=== PATIENT | male | born 1990 | race Two or more races ===

== ENCOUNTER 2019-05-19 21:13 | Emergency (ER) | payer OTHER ==
[~2019-05-19] VITALS: Ht 190.5 cm; Wt 83.5 kg
[2019-05-20] MEDS ORDERED: NORFLEX100MG PO (00:18)
[2019-05-20] MEDS ORDERED: KETO10TA2 PO (00:18)
== END 2019-05-20 00:24 ==
LOC: ER 21:13
DX: M53.3 Sacrococcygeal disorders, not elsewhere classified (principal)

== ENCOUNTER 2020-01-06 20:28 | Emergency (ER) | payer OTHER ==
[~2020-01-06] VITALS: Ht 190.5 cm; Wt 83.5 kg
[~2020-01-06 20:28] MED LIST: KETO10TA2 PO; NORFLEX100MG PO
== END 2020-01-06 23:37 | disposition home or self-care (01) ==
LOC: ER 20:28
DX: J06.9 Acute upper respiratory infection, unspecified (principal); R06.02 Shortness of breath; F41.8 Other specified anxiety disorders

== ENCOUNTER 2020-01-17 00:12 | Emergency (ER) | payer OTHER ==
[~2020-01-17] VITALS: Ht 190.5 cm; Wt 82.1 kg
== END 2020-01-17 01:50 | disposition home or self-care (01) ==
LOC: ER 00:12
DX: M94.0 Chondrocostal junction syndrome [Tietze] (principal); K29.70 Gastritis, unspecified, without bleeding

== ENCOUNTER 2021-02-02 12:09 | Emergency (ER) | payer OTHER ==
[~2021-02-02] VITALS: Ht 190.5 cm; Wt 65.8 kg
[2021-02-02] MEDS ORDERED: KETO10TA2 PO (16:04)
== END 2021-02-02 16:08 | disposition home or self-care (01) ==
LOC: ER 12:09
DX: S93.691A Other sprain of right foot, initial encounter (principal); X50.0XXA Overexertion from strenuous movement or load, initial encounter; Y93.89 Activity, other specified; Y92.488 Other paved roadways as the place of occurrence of the external cause; Y99.8 Other external cause status

== ENCOUNTER 2021-08-08 08:24 | Emergency (ER) | payer OTHER ==
[~2021-08-08] VITALS: Ht 190.5 cm; Wt 94.8 kg
== END 2021-08-08 12:56 | disposition home or self-care (01) ==
LOC: ER 08:24
DX: M94.0 Chondrocostal junction syndrome [Tietze] (principal); R07.89 Other chest pain; Z03.818 Encounter for observation for suspected exposure to other biological agents ruled out